=== PATIENT | male | born 1955 | race African-American/Black ===

== ENCOUNTER 2018-05-18 17:36 | Emergency (ER) | payer OTHER ==
[~2018-05-18] VITALS: Ht 175.3 cm; Wt 81.7 kg
--- NOTE | ~2018-05-18 | EKG ---
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
[2018-05-18 17:51] VITALS: BP 141/82
== END 2018-05-18 18:39 | disposition left against medical advice (07) ==
LOC: ER 17:36
DX: R42 Dizziness and giddiness (principal); Z86.73 Personal history of transient ischemic attack (TIA), and cerebral infarction without residual deficits